=== PATIENT | male | born 1950 | race Caucasian/White ===

== ENCOUNTER → 2019-06-12 | Day surgery (SDC) | payer MEDICARE ==
[2019-06-11 14:06] VITALS: BMI 43.1
--- NOTE | 2019-06-12 13:26 | RAD ---
XR Lumbar Spine 2 Or 3 View History: Preop Comparison: None. Findings: No acute fracture or malalignment of the lumbar spine. There is no prior laminectomy change s at L4. Advanced facet arthropathy L3-S1. In the neutral position there is 5 mm L3 over L4 anterolisthesis and 2 mm L4 over L5 retrolisthesis. No significant translation with flexion or extension. Moderate narrowing of the L4-5 disc space. Impression: Multiple moderate spondylosis without significant translation with flexion or extension.
== END ==
LOC: SDC/OP 10:34 → EDSTATUS 13:00
PROVIDERS: ATTEND Neurological Surgery
DX: M47.816 Spondylosis without myelopathy or radiculopathy, lumbar region (principal); Z53.9 Procedure and treatment not carried out, unspecified reason
CPT/HCPCS: 72100